=== PATIENT | male | born 1995 | race American Indian/Alaskan Native ===

== ENCOUNTER 2017-01-24 20:54 | Emergency (ER) | payer SELFPAY ==
[2017-01-24] MEDS ORDERED: D50W (25GM) Syringe IV ONE (21:06)
[2017-01-24 23:48] VITALS: BP 143/83
--- NOTE | 2017-01-25 01:34 | Emergency Department Report ---
ED Extremity Problem HPI - General Chief complaint: Extremity Problem,Nontraumatic Stated complaint: POSSIBLE FOOT INFECTION Time Seen by Provider: 01/25/17 00:53 Source: patient Mode of arrival: Ambulatory Limitations: No Limitations - History of Present Illness Initial comments: 21-year-old male presents with complaint of lesion to his right great toe for nearly 6 years. Denies any pain fever chills pus drainage. States that skin is very rough on the edge of a stone he has not sure why which is why he came to the emergency room. Has not sought out medical attention for this in the past Onset/Timin -: year(s) Location: right History of Same: Yes Radiation: none - Related Data Previous Rx's Medication Instructions Recorded Last Taken Type Naproxen [Naprosyn TAB] 375 mg PO BID PRN #20 tablet 01/25/17 Unknown Rx Salicylic Acid [Dr Cruz Clear 1 each TP QDAY #1 adh..patch 01/25/17 Unknown Rx Away] Allergies Allergy/AdvReac Type Severity Reaction Status Date / Time No Known Allergies Allergy Verified 01/24/17 22:05 ED Review of Systems ROS: Stated complaint: POSSIBLE FOOT INFECTION Other details as noted in HPI Constitutional: denies: chills, fever Eyes: denies: eye pain, eye discharge, vision change ENT: denies: ear pain, throat pain Respiratory: denies: cough, shortness of breath, wheezing Cardiovascular: denies: chest pain, palpitations Endocrine: no symptoms reported Gastrointestinal: denies: abdominal pain, nausea, diarrhea Genitourinary: denies: urgency, dysuria Musculoskeletal: denies: back pain, joint swelling, arthralgia Skin: as per HPI (lesions on distal toes and mid foot). denies: rash, lesions Neurological: denies: headache, weakness, paresthesias Psychiatric: denies: anxiety, depression Hematological/Lymphatic: denies: easy bleeding, easy bruising ED Past Medical Hx - Past Medical History Previous Medical History?: No - Surgical History Past Surgical History?: No - Social History Smoking Status: Current Every Day Smoker Substance Use Type: Alcohol - Medications Home Medications: Home Medications Medication Instructions Recorded Confirmed Last Taken Type Naproxen [Naprosyn TAB] 375 mg PO BID PRN #20 tablet 01/25/17 Unknown Rx Salicylic Acid [Dr Cruz Clear 1 each TP QDAY #1 adh..patch 01/25/17 Unknown Rx Away] ED Physical Exam - General Limitations: No Limitations General appearance: alert, in no apparent distress - Head Head exam: Present: atraumatic, normocephalic - Eye Eye exam: Present: normal appearance, PERRL, EOMI - ENT ENT exam: Present: mucous membranes moist - Neck Neck exam: Present: normal inspection - Respiratory Respiratory exam: Present: normal lung sounds bilaterally. Absent: respiratory distress - Cardiovascular Cardiovascular Exam: Present: regular rate, normal rhythm. Absent: systolic murmur, diastolic murmur, rubs, gallop - GI/Abdominal GI/Abdominal exam: Present: soft, normal bowel sounds - Rectal Rectal exam: Present: deferred - Extremities Exam Extremities exam: Present: normal inspection - Expanded Lower Extremity Exam Right Foot/Toe exam: Present: full ROM, deformity (multiple plantar warts on the toe and base of right foot and sole) Gait: Positive: observed and normal 1 - Plantar warts here 1 - Plantar warts here - Back Exam Back exam: Present: normal inspection - Neurological Exam Neurological exam: Present: alert, oriented X3 - Psychiatric Psychiatric exam: Present: normal affect, normal mood - Skin Skin exam: Present: warm, dry, intact, normal color. Absent: rash ED Course Vital Signs 01/24/17 01/24/17 22:05 23:47 Temperature 98.7 F 98.4 F Pulse Rate 82 77 Respiratory 20 16 Rate Blood Pressure 129/71 Blood Pressure 143/83 [Right] O2 Sat by Pulse 98 100 Oximetry ED Medical Decision Making - Medical Decision Making A/P: Plantar warts right foot and toes 1-referral to podiatry 2-naproxen when necessary 3-topical anti-wart therapy 4- no clinical signs of cellulitis or infection otherwise Critical care attestation.: If time is entered above; I have spent that time in minutes in the direct care of this critically ill patient, excluding procedure time. ED Disposition Clinical Impression: Plantar wart of right foot Disposition: DC-01 TO HOME OR SELFCARE Is pt being admited?: No Does the pt Need Aspirin: No Condition: Stable Instructions: Tiffany Kelly (ED) Additional Instructions: [email or web address] Prescriptions: Naproxen [Naprosyn TAB] 375 mg PO BID PRN #20 tablet PRN Reason: Pain Salicylic Acid [Dr Pearson's Clear Away] 1 each TP QDAY #1 adh..patch Referrals: [facility] [Outside] - 3-5 Days [facility] [Outside] - 3-5 Days RAFAL LIEBERMAN DPM [Staff Physician] - 3-5 Days Forms: Work/School Release Form(ED) Time of Disposition: 01:32
== END 2017-01-25 01:39 | disposition home or self-care (01) ==
LOC: ED 20:54
DX: B07.0 Plantar wart (principal); F17.200 Nicotine dependence, unspecified, uncomplicated
CPT/HCPCS: 99282

== ENCOUNTER 2019-04-05 04:44 | Inpatient (IN) | payer OTHER, SELFPAY ==
[2019-04-05] MEDS ORDERED: ONDANSETRON 4 MG/2 ML INJ IV ONE ×2 (05:02→07:16)
[2019-04-05] MEDS ORDERED: DICYCLOMINE 20 MG/2 ML INJ IM ONE (05:02)
[2019-04-05] MEDS ORDERED: SODIUM CHLORIDE 0.9% 1000 ML 1,000 ML IV ONE (05:02)
[2019-04-05] MEDS ORDERED: PANTOPRAZOLE 40 MG INJ IV ONE (05:02)
--- NOTE | 2019-04-05 05:09 | Emergency Department Report ---
ED N/V/D HPI - General Chief complaint: Nausea/Vomiting/Diarrhea Stated complaint: POSS FOOD POISONING/VOMITING Time Seen by Provider: 04/05/19 05:02 Source: patient Mode of arrival: Ambulatory Limitations: No Limitations - History of Present Illness Initial comments: Patient is a 23-year-old male presents emergency room with complaints of "food poisoning." He states that he ate chicken tenders from [employer] and began to feel sick after. He states he has associated nausea, vomiting, diarrhea, abdominal cramping and pain that began at 6 PM tonight. He states he's had approximately 5 episodes of vomiting and diarrhea. He denies any fever, hemato chezia, melena, hematemesis. He denies any sick contacts. He denies any recent antibiotics. he denies any past medical history or allergies medications. - Related Data Previous Rx's Medication Instructions Recorded Last Taken Type Naproxen [Naprosyn TAB] 375 mg PO BID PRN #20 tablet 01/25/17 Unknown Rx Salicylic Acid [Dr Cruz Clear 1 each TP QDAY #1 adh..patch 01/25/17 Unknown Rx Away] Allergies Allergy/AdvReac Type Severity Reaction Status Date / Time No Known Allergies Allergy Verified 01/24/17 22:05 ED Review of Systems ROS: Stated complaint: POSS FOOD POISONING/VOMITING Other details as noted in HPI Comment: All other systems reviewed and negative ED Past Medical Hx - Past Medical History Previous Medical History?: No - Surgical History Past Surgical History?: No - Social History Smoking Status: Current Every Day Smoker Substance Use Type: Marijuana - Medications Home Medications: Home Medications Medication Instructions Recorded Confirmed Last Taken Type Naproxen [Naprosyn TAB] 375 mg PO BID PRN #20 tablet 01/25/17 Unknown Rx Salicylic Acid [Dr Cruz Clear 1 each TP QDAY #1 adh..patch 01/25/17 Unknown Rx Away] ED Physical Exam - General Limitations: No Limitations General appearance: alert, in no apparent distress - Head Head exam: Present: atraumatic, normocephalic - Eye Eye exam: Present: normal appearance - ENT ENT exam: Present: mucous membranes moist - Respiratory Respiratory exam: Present: normal lung sounds bilaterally. Absent: respiratory distress, wheezes, rales, rhonchi, stridor, chest wall tenderness, accessory muscle use, decreased breath sounds, prolonged expiratory - Cardiovascular Cardiovascular Exam: Present: regular rate, normal rhythm, normal heart sounds. Absent: systolic murmur, diastolic murmur, rubs, gallop - GI/Abdominal GI/Abdominal exam: Present: soft, tenderness (generalized ), normal bowel sounds. Absent: distended, guarding, rebound, rigid - Neurological Exam Neurological exam: Present: alert, oriented X3 - Psychiatric Psychiatric exam: Present: normal affect, normal mood - Skin Skin exam: Present: warm, dry, intact ED Course Vital Signs 04/05/19 04/05/19 04/05/19 04:47 05:23 06:48 Temperature 98.1 F 98.5 F Pulse Rate 95 H 92 H Respiratory 18 18 18 Rate Blood Pressure 136/75 Blood Pressure 155/67 [Left] O2 Sat by Pulse 95 100 100 Oximetry 04/05/19 07:44 Temperature Pulse Rate 90 Respiratory 16 Rate Blood Pressure Blood Pressure 165/75 [Left] O2 Sat by Pulse 99 Oximetry - Reevaluation(s) Reevaluation #1: 04/05/19 07:15 CT findings show appendicitis, placed pt on NPO, given zosyn, discussed case with Dr. Cerda who will resume care of patient and consult general surgery and admit to hospitalist ED Medical Decision Making - Lab Data Result diagrams: 04/05/19 04:53 04/05/19 04:53 Lab Results 04/05/19 04/05/19 04/05/19 Range/Units 04:53 04:53 Unknown WBC 23.4 H (4.5-11.0) K/mm3 RBC 5.03 (3.65-5.03) M/mm3 Hgb 14.9 (11.8-15.2) gm/dl Hct 44.8 (35.5-45.6) % MCV 89 (84-94) fl MCH 30 (28-32) pg MCHC 33 (32-34) % RDW 13.0 L (13.2-15.2) % Plt Count 266 (140-440) K/mm3 Add Manual Diff Complete Total Counted 100 Seg Neutrophils % Back Tender Fourdrinier Seg Neuts % (Manual) 96.0 H (40.0-70.0) % Band Neutrophils % 0 % Lymphocytes % (Manual) 2.0 L (13.4-35.0) % Reactive Lymphs % (Man) 0 % Monocytes % (Manual) 2.0 (0.0-7.3) % Eosinophils % (Manual) 0 (0.0-4.3) % Basophils % (Manual) 0 (0.0-1.8) % Metamyelocytes % 0 % Myelocytes % 0 % Promyelocytes % 0 % Blast Cells % 0 % Nucleated RBC % Not Reportable Seg Neutrophils # Man 22.5 H (1.8-7.7) K/mm3 Band Neutrophils # 0.0 K/mm3 Lymphocytes # (Manual) 0.5 L (1.2-5.4) K/mm3 Abs React Lymphs (Man) 0.0 K/mm3 Monocytes # (Manual) 0.5 (0.0-0.8) K/mm3 Eosinophils # (Manual) 0.0 (0.0-0.4) K/mm3 Basophils # (Manual) 0.0 (0.0-0.1) K/mm3 Metamyelocytes # 0.0 K/mm3 Myelocytes # 0.0 K/mm3 Promyelocytes # 0.0 K/mm3 Blast Cells # 0.0 K/mm3 WBC Morphology Not Reportable Hypersegmented Neuts Not Reportable Hyposegmented Neuts Not Reportable Hypogranular Neuts Not Reportable Smudge Cells Not Reportable Toxic Granulation Not Reportable Toxic Vacuolation Not Reportable Dohle Bodies Not Reportable Pelger-Huet Anomaly Not Reportable Ye Rods Not Reportable Platelet Estimate Consistent w auto Clumped Platelets Not Reportable Plt Clumps, EDTA Not Reportable Large Platelets Not Reportable Giant Platelets Not Reportable Platelet Satelliting Not Reportable Plt Morphology Comment Not Reportable RBC Morphology Normal Dimorphic RBCs Not Reportable Polychromasia Not Reportable Hypochromasia Not Reportable Poikilocytosis Not Reportable Anisocytosis Not Reportable Microcytosis Not Reportable Macrocytosis Not Reportable Spherocytes Not Reportable Pappenheimer Bodies Not Reportable Sickle Cells Not Reportable Target Cells Not Reportable Tear Drop Cells Not Reportable Ovalocytes Not Reportable Helmet Cells Not Reportable Zee-Jarrell Bodies Not Reportable [place] Rings Not Reportable Gregory Cells Not Reportable Bite Cells Not Reportable Crenated Cell Not Reportable Elliptocytes Not Reportable Acanthocytes (Spur) Not Reportable Rouleaux Not Reportable Hemoglobin C Crystals Not Reportable Schistocytes Not Reportable Malaria parasites Not Reportable Peterson Bodies Not Reportable Hem Pathologist Commnt No Sodium 141 (137-145) mmol/L Potassium 3.9 (3.6-5.0) mmol/L Chloride 103.2 (98-107) mmol/L Carbon Dioxide 23 (22-30) mmol/L Anion Gap 19 mmol/L BUN 17 (9-20) mg/dL Creatinine 1.1 (0.8-1.5) mg/dL Estimated GFR > 60 ml/min BUN/Creatinine Ratio 15 % Glucose 132 H (75-100) mg/dL Calcium 9.7 (8.4-10.2) mg/dL Total Bilirubin 0.60 (0.1-1.2) mg/dL AST 26 (5-40) units/L ALT 35 (7-56) units/L Alkaline Phosphatase 66 (35-129) units/L Total Protein 7.4 (6.3-8.2) g/dL Albumin 4.9 (3.9-5) g/dL Albumin/Globulin Ratio 2.0 % Lipase 85 H (13-60) units/L Urine Color Yellow (Yellow) Urine Turbidity Hazy (Clear) Urine pH 9.0 H (5.0-7.0) Ur Specific [place] 1.025 (1.003-1.030) Urine Protein 30 mg/dl (Negative) mg/dL Urine Glucose (UA) Neg (Negative) mg/dL Urine Ketones Neg (Negative) mg/dL Urine Blood Neg (Negative) Urine Nitrite Neg (Negative) Urine Bilirubin Neg (Negative) Urine Urobilinogen < 2.0 (<2.0) mg/dL Ur Leukocyte Esterase Neg (Negative) Urine WBC (Auto) 3.0 (0.0-6.0) /HPF Urine RBC (Auto) 3.0 (0.0-6.0) /HPF Amorphous Crystals Few Urine Mucus Few /HPF - Radiology Data Radiology results: report reviewed CT abdomen pelvis w con INDICATION: N/V/D, elevated WBC, abd pain. TECHNIQUE: All CT scans at this location are performed using the following dose modulation technique: Automated exposure control. CONTRAST: IV contrast. COMPARISON: None available. CT ABDOMEN: The parenchymal organs are unremarkable in appearance. Negative for abdominal mass, fluid collection or adenopathy. An appendicolith is seen at the base of a retrocecal appendix which is distended and has adjacent inflammation. No free perforation or abscess. CT PELVIS: Small amount of pelvic free fluid. Negative for mass or fluid collection. IMPRESSION: Acute retrocecal appendicitis. Signer Name: Ge Johansen MD Signed: 04/05/2019 7:06 AM Workstation Name: [id number] Transcribed By: ES Dictated By: Ge Johansen MD Electronically Authenticated By: Ge Johansen MD Signed Date/Time: 04/05/19705 DD/ 1 TD/TT: Critical care attestation.: If time is entered above; I have spent that time in minutes in the direct care of this critically ill patient, excluding procedure time. ED Disposition Clinical Impression: Nausea vomiting and diarrhea Appendicitis Qualifiers: Appendicitis type: acute appendicitis Acute appendicitis type: with localized peritonitis Appendicitis gangrene presence: without gangrene Appendicitis perforation presence: without perforation Appendicitis abscess presence: without abscess Qualified Code(s): K35.30 - Acute appendicitis with localized peritonitis, without perforation or gangrene Leukocytosis Qualifiers: Leukocytosis type: unspecified Qualified Code(s): D72.829 - Elevated white blood cell count, unspecified Disposition: -09 OP ADMIT IP TO THIS HOSP Is pt being admited?: Yes Does the pt Need Aspirin: No Condition: Fair
[2019-04-05 05:15] LABS: Hematocrit 44.8 % (35.5-45.6); Hemoglobin 14.9 gm/dl (11.8-15.2); Mean Corpuscular HGB Conc 33 % (32-34); Mean Corpuscular Volume 89 fl (84-94); Platelet Count 266 K/mm3 (140-440); Red Blood Count 5.03 M/mm3 (3.65-5.03)
[2019-04-05 05:32] LABS: Alanine Aminotransferase 35 units/L (7-56); Albumin 4.9 g/dL (3.9-5); BUN/Creatinine Ratio 15; Blood Urea Nitrogen 17 mg/dL (9-20); Calcium 9.7 mg/dL (8.4-10.2); Hemolysis Index 5
[2019-04-05] MEDS ORDERED: LORazepam 2 MG/ML VIAL IV ONE (06:27)
[2019-04-05 06:40] LABS: Basophils % (Manual) 0 % (0.0-1.8); Eosinophils % (Manual) 0 % (0.0-4.3); Platelet Estimate Consistent w Auto; RBC Morphology Normal; Total Cells Counted 100
[2019-04-05] MEDS ORDERED: ACETAMINOPHEN 500 MG TAB PO ONE (06:45)
[2019-04-05 06:59] LABS: Amorphous Crystals,Urine Few; Bilirubin,Urine NEG (Negative); Blood,Urine NEG (Negative); Color,Urine Yellow (Yellow); Mucus,Urine FEW /HPF; Urobilinogen,Urine < 2.0 mg/dL (<2.0)
--- NOTE | 2019-04-05 07:10 | Cat Scan Report ---
CT abdomen pelvis w con INDICATION: N/V/D, elevated WBC, abd pain. TECHNIQUE: All CT scans at this location are performed using the following dose modulation technique: Automated exposure control. CONTRAST: IV contrast. COMPARISON: None available. CT ABDOMEN: The parenchymal organs are unremarkable in appearance. Negative for abdominal mass, fluid collection or adenopathy. An appendicolith is seen at the base of a retrocecal appendix which is distended and has adjacent inf lammation. No free perforation or abscess. CT PELVIS: Small amount of pelvic free fluid. Negative for mass or fluid collection. IMPRESSION: Acute retrocecal appendicitis. Signer Name: Ge Johansen MD Signed: 04/05/2019 7:06 AM Workstation Name: [id number]
[2019-04-05] MEDS ORDERED: PIPERACIL/TAZOBACTA 4.5/NS 100 4.5 GM/100 ML VIAL IV ONE (07:12)
[2019-04-05] MEDS ORDERED: MORPHINE 4 MG/1 ML INJ IV ONE (07:16)
--- NOTE | 2019-04-05 07:20 | Emergency Department Report ---
Blank Doc - Documentation Documentation: ED MD Face to face note Pt seen by myself. Pt admits to AP x ~[address] shows acute retrocecal appendicitis. ABD: TTP RLQ with mild discomfort at LLQ and RUQ 07:22 Surgery paged 07:30 Case d/w Dr Armstrong. Will notify OR Findings [facility] [address] [id number] Cat Scan Report Signed Patient: DAVID KLEIN MR#: [id number] : 1995 Acct:[id number] Age/Sex: 23 / M ADM Date: 04/05/19 Loc: ED Attending Dr: Ordering Physician: KELLEE DAWSON Date of Service: 04/05/19 Procedure(s): CT abdomen pelvis w con Accession Number(s): [id number] cc: KELLEE DAWSON CT abdomen pelvis w con INDICATION: N/V/D, elevated WBC, abd pain. TECHNIQUE: All CT scans at this location are performed using the following dose modulation technique: Automated exposure control. CONTRAST: IV contrast. COMPARISON: None available. CT ABDOMEN: The parenchymal organs are unremarkable in appearance. Negative for abdominal mass, fluid collection or adenopathy. An appendicolith is seen at the base of a retrocecal appendix which is distended and has adjacent inflammation. No free perforation or abscess. CT PELVIS: Small amount of pelvic free fluid. Negative for mass or fluid collection. IMPRESSION: Acute retrocecal appendicitis. Signer Name: Ge Johansen MD Signed: 04/05/2019 7:06 AM Workstation Name: [id number] Transcribed By: ES Dictated By: Ge Johansen MD Electronically Authenticated By: Ge Johansen MD Signed Date/Time: 04/05/19705 DD/ 1 TD/TT:
[2019-04-05] MEDS ORDERED: BUPIVACAINE-EPINEPHRINE/PF 0.5%-1:200,000 (30 ML) VIAL INFILTRATI ONE (08:25)
[2019-04-05] MEDS ORDERED: GLYCOPYRROLATE 0.4 MG/2 ML INJ ONE ×2 (08:30→08:32)
[2019-04-05] MEDS ORDERED: NEOSTIGMINE 10MG/10 ML INJ MDV ONE (08:32)
[2019-04-05] MEDS ORDERED: ONDANSETRON 4 MG/2 ML INJ ONE (08:32)
[2019-04-05] MEDS ORDERED: LIDOCAINE MPF (2%) 20 MG/1 ML VIAL 5 ML ONE (08:32)
[2019-04-05] MEDS ORDERED: ROCURONIUM 50 MG/5 ML INJ IV ONE (08:32)
[2019-04-05] MEDS ORDERED: PHENYLEPHRINE/NS 1,000 MCG/10 ML SYRINGE (OR USE) IV ONE (08:32)
[2019-04-05] MEDS ORDERED: PROPOFOL 200 MG/20 ML VIAL IV ONE (08:32)
[2019-04-05] MEDS ORDERED: dexAMETHasone 20 MG/5 ML VIAL ONE (08:32)
[2019-04-05] MEDS ORDERED: fentaNYL 250 MCG/5 ML INJ ONE (08:32)
--- NOTE | 2019-04-05 08:47 | Anesthesia Day of Surgery ---
Anesthesia Day of Surgery - Day of Surgery Patient Examined: Yes Patient H&P Reviewed: Yes Patient is NPO: Yes Beta Blockers: No
--- NOTE | 2019-04-05 08:47 | Anesthesia Consultation ---
Anesthesia Consult and Med Hx Date of service: 04/05/19 - Airway Anesthetic Teeth Evaluation: Good ROM Head & Neck: Adequate Mental/Hyoid Distance: Adequate Mallampati Class: Class II Intubation Access Assessment: Probably Good - Pre-Operative Health Status ASA Pre-Surgery Classification: ASA2 Proposed Anesthetic Plan: General - Pulmonary Hx Smoking: Yes (marijuana/cigs) Hx Asthma: No Hx Respiratory Symptoms: No SOB: No COPD: No Home Oxygen Therapy: No Hx Pneumonia: No Hx Sleep Apnea: No - Cardiovascular System Hx Hypertension: No Hx Coronary Artery Disease: No Hx Heart Attack/AMI: No Hx Angina: No Hx Percutaneous Transluminal Coronary Angioplasty (PTCA): No Hx Cardia Arrhythmia: No Hx Pacemaker: No Hx Internal Defibrillator: No Hx Valvular Heart Disease: No Hx Heart Murmur: No Hx Peripheral Vascular Disease: No - Central Nervous System Hx Neuromuscular Disorder: No Hx Seizures: No CVA: No Hx Back Pain: No Hx Psychiatric Problems: No - Gastrointestinal Hx Ulcer: No Hx Gastroesophageal Reflux Disease: No - Endocrine Hx Renal Disease: No Hx End Stage Renal Disease: No Hx Cirrhosis: No Hx Liver Disease: No Hx Insulin Dependent Diabetes: No Hx Non-Insulin Dependent Diabetes: No Hx Thyroid Disease: No Hx Hypothyroidism: No Hx Hyperthyroidism: No - Hematic Hx Anemia: No Hx Sickle Cell Disease: No - Other Systems Hx Alcohol Use: Yes Hx Substance Use: Yes (marijuana) Hx Cancer: No Hx Obesity: No
--- NOTE | 2019-04-05 08:53 | Progress Note ---
Assessment and Plan 23 y/o male admitted thru ER with appendicitis CT - large inflammed retrocecal appendix imp r/o appendicitis plan - attempt lap appy possible open appendectomy. risks, indications and complications reviewed with pt. consent signed will proceed Selected Entries 04/05/19 04/05/19 06:48 07:44 Temperature 98.5 F Pulse Rate 90 Respiratory 16 Rate Blood Pressure 165/75 [Left] Laboratory Tests 04/05/19 04:53 WBC 23.4 H Hgb 14.9 Hct 44.8 Objective Vital Signs - 12hr 04/05/19 04/05/19 04/05/19 05:23 06:48 07:44 Temperature 98.5 F Pulse Rate 92 H 90 Respiratory 18 18 16 Rate Blood Pressure 155/67 165/75 [Left] O2 Sat by Pulse 100 100 99 Oximetry - Labs 04/05/19 04:53 04/05/19 04:53 Diabetes panel 04/05/19 Range/Units 04:53 Sodium 141 (137-145) mmol/L Potassium 3.9 (3.6-5.0) mmol/L Chloride 103.2 (98-107) mmol/L Carbon Dioxide 23 (22-30) mmol/L BUN 17 (9-20) mg/dL Creatinine 1.1 (0.8-1.5) mg/dL Glucose 132 H (75-100) mg/dL Calcium 9.7 (8.4-10.2) mg/dL AST 26 (5-40) units/L ALT 35 (7-56) units/L Alkaline Phosphatase 66 (35-129) units/L Total Protein 7.4 (6.3-8.2) g/dL Albumin 4.9 (3.9-5) g/dL Calcium panel 04/05/19 Range/Units 04:53 Calcium 9.7 (8.4-10.2) mg/dL Albumin 4.9 (3.9-5) g/dL Pituitary panel 04/05/19 Range/Units 04:53 Sodium 141 (137-145) mmol/L Potassium 3.9 (3.6-5.0) mmol/L Chloride 103.2 (98-107) mmol/L Carbon Dioxide 23 (22-30) mmol/L BUN 17 (9-20) mg/dL Creatinine 1.1 (0.8-1.5) mg/dL Glucose 132 H (75-100) mg/dL Calcium 9.7 (8.4-10.2) mg/dL Adrenal panel 04/05/19 Range/Units 04:53 Sodium 141 (137-145) mmol/L Potassium 3.9 (3.6-5.0) mmol/L Chloride 103.2 (98-107) mmol/L Carbon Dioxide 23 (22-30) mmol/L BUN 17 (9-20) mg/dL Creatinine 1.1 (0.8-1.5) mg/dL Glucose 132 H (75-100) mg/dL Calcium 9.7 (8.4-10.2) mg/dL Total Bilirubin 0.60 (0.1-1.2) mg/dL AST 26 (5-40) units/L ALT 35 (7-56) units/L Alkaline Phosphatase 66 (35-129) units/L Total Protein 7.4 (6.3-8.2) g/dL Albumin 4.9 (3.9-5) g/dL
--- NOTE | 2019-04-05 09:04 | Consultation ---
REASON FOR CONSULTATION: Rule out appendicitis. HISTORY OF PRESENT ILLNESS: The patient is a healthy 23-year-old gentleman who presented to the Emergency Room with recent onset of lower abdominal pain accompanied by nausea and vomiting. PAST MEDICAL HISTORY: Negative. PAST SURGICAL HISTORY: Negative. ALLERGIES: No known allergies. MEDICATIONS: No medications. SOCIAL HISTORY: Smoker. Also, smokes marijuana. PHYSICAL EXAMINATION: GENERAL: At this time reveals the patient to be in significant discomfort. VITAL SIGNS: Show him to currently be afebrile with a temperature of 98.5, blood pressure is 165/75, pulse of 90, respirations 16. ABDOMEN: Examination of the abdomen reveals it to be slightly distended with diffuse tenderness, more so in the right lower and right upper quadrants. Bowel sounds are absent. LABORATORY DATA: Lab work at present includes a CBC, which shows a white count of 23.4, H and H is 14 and 44. Electrolytes are essentially within normal limits. LFTs are also within normal limits. A CT scan of the abdomen has been performed, which I have reviewed with the radiologist. A very large inflamed appendix is noted that actually retrocecal and extends up to near the hepatic flexure. IMPRESSION: At this time is that of a healthy 23-year-old male, rule out acute appendicitis. PLAN: The plan is to proceed with attempted laparoscopic appendectomy, possible open appendectomy. Risks, indications, and complications have been reviewed with the patient, who understands and has signed his consent. JOB# [id number] JAELYN/OPAL
[2019-04-05] MEDS ORDERED: HYDROmorphone 1 MG/1 ML INJ ONE (09:49)
[2019-04-05] MEDS ORDERED: BUPIVACAINE-EPINEPHRINE/PF 0.5%-1:200,000 (10 ML) VIAL INFILTRATI ONE (09:53)
--- NOTE | 2019-04-05 10:22 | Operative Report ---
PREOPERATIVE DIAGNOSIS: Rule out appendicitis. POSTOPERATIVE DIAGNOSIS: Rule out appendicitis. PROCEDURE: Laparoscopic appendectomy. SURGEON: Mitch Armstrong MD ANESTHESIA: General. ESTIMATED BLOOD LOSS: Minimal. DRAINS: None. COMPLICATIONS: None. DESCRIPTION OF PROCEDURE: The patient was taken up to the operating room, prepped and draped in usual sterile fashion. Veress needle was inserted and CO2 insufflation begun. A 5 mm trocar was then inserted and camera inserted. All other trocars inserted under direct visualization. Attention was then focused to the right lower quadrant where inflamed and enlarged appendiceal tip was noted. The appendiceal tip was gently grasped with a Pepe. The appendix was slowly dissected free down to the base. The mesoappendix was then secured with Harmonic scalpel. The base of the appendix was then transected and secured with an Endo-DIDI. The staple line was carefully inspected and noted to be intact. No bleeding or oozing noted. Appendix was then placed in the Endopouch and brought out through the infraumbilical port site. Appendix was subsequently swabbed for aerobic and anaerobic cultures. The right lower quadrant was once again inspected. A 4 x 4 gauze was used to block the area completely dry. Again, no bleeding or oozing was noted afterwards. The 12 mm trocar site at the infraumbilical site was closed with a [id number] 0 Vicryl suture. The repair was inspected through one of the lateral 5 mm ports to assure no evidence of any entrapped bowel or omentum, none were seen. The two lateral 5 mm ports were removed under direct visualization. No bleeding or oozing noted. The final port was used to expel the CO2 and the trocar removed. The skin at all port sites was closed with subcuticular 4-0 Vicryl. A 0.5% Marcaine was infiltrated over the port site for postoperative pain relief. The patient tolerated the procedure well and left the OR in stable condition. JOB# [id number] JAELYN/OPAL
--- NOTE | 2019-04-05 18:14 | Post Anesthesia Evaluation ---
- Post Anesthesia Evaluation Patient Participated: Yes Airway Patent: Yes Stable Respiratory Function: Yes Nausea/Vomiting: No Temp > 96.8F: Yes Pain Manageable: Yes Adequeate Hydration: Yes Anesthesia Complications: No Block Receding Appropriately: Not Applicable Patient on Ventilator: No
[2019-04-05] MEDS ORDERED: MORPHINE 2 MG/1 ML INJ IV PRN (19:07)
[2019-04-05] MEDS ORDERED: ONDANSETRON 4 MG/2 ML INJ IV PRN (19:07)
[2019-04-05] MEDS: D5W/0.45% NACL 1,000 ML IV SCH (19:36)
[2019-04-06] MEDS: D5W/0.45% NACL 1,000 ML IV SCH ×2 (05:49→15:16)
[2019-04-06 06:33] LABS: Basophils % (Auto) 0.1 % (0.0-1.8); Hemoglobin 15.4 gm/dl (11.8-15.2); Lymphocytes # (Auto) 1.4 K/mm3 (1.2-5.4); Lymphocytes % (Auto) 7.6 % (13.4-35.0); Mean Corpuscular HGB Conc 33 % (32-34); Mean Corpuscular Volume 89 fl (84-94); Monocytes # (Auto) 1.4 K/mm3 (0.0-0.8); Monocytes % (Auto) 7.3 % (0.0-7.3); Platelet Count 284 K/mm3 (140-440); Red Blood Count 5.17 M/mm3 (3.65-5.03); Red Cell Distribution Width 12.8 % (13.2-15.2)
[2019-04-06] MEDS ORDERED: HYDROcodone/ACETAMINOPHEN 5-325 MG TAB PO PRN (11:30)
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
--- NOTE | 2019-04-06 20:10 | Discharge Summary ---
Providers - Providers Date of Admission: 04/05/19 09:56 Attending physician: NERISSA SPENCER Primary care physician: NGOZI JEFFREY MD Hospitalization Condition: Stable Disposition: DC-01 TO HOME OR SELFCARE Core Measure Documentation - Palliative Care Palliative Care/ Comfort Measures: Not Applicable - Core Measures Any of the following diagnoses?: none Exam - Constitutional Vitals: Temp Pulse Resp BP Pulse Ox 98.4 F 87 20 126/78 97 04/06/19 19:31 04/06/19 19:31 04/06/19 19:31 04/06/19 19:31 04/06/19 19:31 Plan Activity: other (september d/c in am if solid breakfast robert and wbc down.) Wound: keep clean and dry (x 3 days) Additional Instructions: aleve I po q 6-8 hrs prn for breakthrough pain. Levaquin 500 mg po q am x 5 days Follow up with: PRIMARY CAREMD [Primary Care Provider] - 3-5 Days
[2019-04-07 07:26] LABS: Basophils % (Auto) 0.6 % (0.0-1.8); Eosinophils # (Auto) 0.1 K/mm3 (0.0-0.4); Eosinophils % (Auto) 0.9 % (0.0-4.3); Hematocrit 46.1 % (35.5-45.6); Hemoglobin 15.5 gm/dl (11.8-15.2); Lymphocytes # (Auto) 1.7 K/mm3 (1.2-5.4); Lymphocytes % (Auto) 20.8 % (13.4-35.0); Mean Corpuscular HGB Conc 34 % (32-34); Mean Corpuscular Volume 89 fl (84-94); Monocytes # (Auto) 0.8 K/mm3 (0.0-0.8); Monocytes % (Auto) 10.2 % (0.0-7.3); Platelet Count 263 K/mm3 (140-440); Red Cell Distribution Width 12.7 % (13.2-15.2)
[2019-04-07 08:16] VITALS: BP 142/78
== END 2019-04-07 09:20 | disposition home or self-care (01) | DRG 343 ==
LOC: ED 04:44 → OR 08:54 → 3B-SURG 09:56
PROVIDERS: ADMIT Surgery; ATTEND Surgery
PROC: 0DTJ4ZZ Resection of Appendix, Percutaneous Endoscopic Approach (ICD-10-PCS; principal; 2019-04-05)
DX: K35.30 Acute appendicitis with localized peritonitis, without perforation or gangrene (principal); F17.200 Nicotine dependence, unspecified, uncomplicated; F12.90 Cannabis use, unspecified, uncomplicated; D72.829 Elevated white blood cell count, unspecified; Z72.89 Other problems related to lifestyle
CPT/HCPCS: 36415; 74177; 80053; 81001; 82962; 83690; 85007; 85025; 87075; 87116; 88304; G0378; C9113; J0500; J1100; J1170; J1956; J2060; J2270; J2370; J2405; J2543; J2704; J2710; J3010; J7030; Q9967

== ENCOUNTER 2019-11-13 00:14 | Emergency (ER) | payer SELFPAY ==
[2019-11-13] MEDS ORDERED: ONDANSETRON 4 MG/2 ML INJ IV ONE (00:17)
[2019-11-13] MEDS ORDERED: HYDROmorphone 1 MG/1 ML INJ IV ONE ×2 (00:17→01:09)
[2019-11-13] MEDS ORDERED: DIPHtheria,PERTUSSIS(ACELL),TETANUS VACCINE/PF 0.5 ML VIAL IM ONE (00:25)
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
[2019-11-13 00:32] LABS: Hematocrit 41.3 % (35.5-45.6); Hemoglobin 14.6 gm/dl (11.8-15.2); Mean Corpuscular HGB Conc 35 % (32-34); Mean Corpuscular Volume 90 fl (84-94); Platelet Count 359 K/mm3 (140-440); Red Blood Count 4.59 M/mm3 (3.65-5.03); Red Cell Distribution Width 12.6 % (13.2-15.2)
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
[2019-11-13 00:44] LABS: INR 0.93 (0.87-1.13)
[2019-11-13 00:45] LABS: Partial Thromboplastin Time 24.9 Sec. (24.2-36.6)
[2019-11-13 00:46] LABS: BUN/Creatinine Ratio 10; Blood Urea Nitrogen 12 mg/dL (9-20); Calcium 9.3 mg/dL (8.4-10.2); Hemolysis Index 9
[2019-11-13] MEDS ORDERED: ceFAZolin/NS 1 GM/50 ML 1 GM/50 ML BAG IV ONE (01:00)
[2019-11-13] MEDS ORDERED: POTASSIUM CHLORIDE 10 MEQ 10 MEQ/100 ML BAG IV SCH (01:00)
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
[2019-11-13 02:10] VITALS: BP 131/83
[2019-11-13 03:39] LABS: Basophils % (Manual) 0 % (0.0-1.8); Total Cells Counted 100
[2019-11-13 03:40] LABS: Burr Cells Few; Ovalocytes Rare; Platelet Estimate Consistent w Auto; Schistocytes Rare
== END 2019-11-13 02:28 | disposition other institution (70) ==
LOC: ED 00:14
DX: S72.8X2 Other fracture of left femur (principal); E87.6 Hypokalemia; F17.200 Nicotine dependence, unspecified, uncomplicated; Z90.49 Acquired absence of other specified parts of digestive tract; X95.8XXA Assault by other firearm discharge, initial encounter; Y93.89 Activity, other specified; Y92.89 Other specified places as the place of occurrence of the external cause; Y99.8 Other external cause status
CPT/HCPCS: 36415; 73551; 73706; 80048; 83735; 85007; 85025; 85610; 85730; 86850; 86900; 86901; 90471; 90715; 96365; 96368; 96375; 96376; 99285; J0690; J1170; J2405; J3480; Q9967; 80320; G0480